=== PATIENT | male | born 1965 | race Caucasian/White ===

== ENCOUNTER 2023-02-10 09:26 | Day surgery (SDC) | payer OTHER ==
[~2023-02-10] VITALS: Ht 167.6 cm; Wt 115.9 kg
[2023-02-10] MEDS ORDERED: ATOR10 (09:53)
[2023-02-10] MEDS ORDERED: ERGO400 (09:53)
[2023-02-10] MEDS ORDERED: ALBU90OI (09:53)
[2023-02-10] MEDS ORDERED: Celexa20 MG (09:54)
[2023-02-10] MEDS ORDERED: FENO48 (09:54)
[2023-02-10] MEDS ORDERED: FISH OIL 1,2001 EAC7 (09:54)
[2023-02-10] MEDS ORDERED: IBUP400 (09:55)
[2023-02-10] MEDS ORDERED: Lisinopril2.5 MG (09:55)
[2023-02-10] MEDS ORDERED: FLONASE SENSIM5.9 M1 (09:55)
--- NOTE | 2023-02-10 11:19 | NUR ---
02/10/23 1119 SARAH STRICKLAND TIMEOUT AT 1110, BLOCK STARTED AT 1112 PATIENT, TOLERATED WELL WITH NO VERSED.
--- NOTE | 2023-02-10 11:30 | NUR ---
02/10/23 1130 Carley Salas LOCAL INJECTED IN PRE OP. PT REQUESTING NO SEDATION.
[2023-02-10 11:42] VITALS: BP 142/91
== END 2023-02-10 12:10 | disposition home or self-care (01) ==
LOC: ORSCSDS 09:26
PROVIDERS: Orthopaedic Surgery
PROC: 01N54ZZ Release Median Nerve, Percutaneous Endoscopic Approach (ICD-10-PCS; principal; 2023-02-10 11:00)
DX: G56.03 Carpal tunnel syndrome, bilateral upper limbs (principal); Z79.899 Other long term (current) drug therapy; E66.01 Morbid (severe) obesity due to excess calories; Z68.41 Body mass index [BMI] 40.0-44.9, adult; G47.33 Obstructive sleep apnea (adult) (pediatric)
CPT/HCPCS: J2250; J7120

== ENCOUNTER 2023-05-12 06:12 | Day surgery (SDC) | payer OTHER ==
[~2023-05-12] VITALS: Ht 167.6 cm; Wt 116.6 kg
[~2023-05-12 06:12] MED LIST: ALBU90OI; ATOR10; Celexa20 MG; ERGO400; FENO48; FISH OIL 1,2001 EAC7; FLONASE SENSIM5.9 M1; IBUP400; Lisinopril2.5 MG
[2023-05-12] MEDS ORDERED: ZYRTEC10 M2 PO (06:34)
[2023-05-12 08:00] VITALS: BP 150/84
--- NOTE | 2023-05-12 08:32 | NUR ---
05/12/23 0832 Enrique Vargas PT REFUSED ICE PACK, DESPITE INSTRUCTIONS TO ICE AND ELEVATE.
== END 2023-05-12 08:20 | disposition home or self-care (01) ==
LOC: ORSCSDS 06:12
PROVIDERS: Orthopaedic Surgery
PROC: 01N54ZZ Release Median Nerve, Percutaneous Endoscopic Approach (ICD-10-PCS; principal; 2023-05-12 07:30)
DX: G56.01 Carpal tunnel syndrome, right upper limb (principal); I10 Essential (primary) hypertension; F32.A Depression, unspecified; G47.30 Sleep apnea, unspecified; Z68.41 Body mass index [BMI] 40.0-44.9, adult; Z79.899 Other long term (current) drug therapy
CPT/HCPCS: J7120